=== PATIENT | female | born 1990 | race Caucasian/White ===

== ENCOUNTER 2017-04-03 12:34 | Emergency (ER) | payer BC ==
[~2017-04-03] VITALS: Ht 165.1 cm; Wt 86.0 kg
[2017-04-03 12:38] VITALS: Ht 165.1 cm; Wt 86.0 kg
[2017-04-03] MEDS ORDERED: LIDOCAINE 1% (MDV) 20 ML INJ SC ONE (14:30)
[2017-04-03] MEDS ORDERED: DIPHTH/TET/ACEL PERTUSS (ADULT) 0.5 ML VIAL IM* ONE (14:30)
[2017-04-03] MEDS ORDERED: HYDROCODONE/APAP (10/325) TAB PO ONE (15:30)
--- NOTE | 2017-04-03 16:16 | RADRPT ---
PROCEDURE: XR Foot. CLINICAL INDICATION: Left foot pain. TECHNIQUE: Three views of the left foot are available for review. COMPARISON: None available FINDINGS: No acute fracture or dislocation is seen. No radiopaque foreign body is identified. Bony mineraliz ation is normal. No significant soft tissue swelling is present. IMPRESSION: 1. No acute fracture or dislocation. RPTAT: HFN .Drew Dsouza MD, Date Time Electronically viewed and signed by .Drew Dsouza MD, on 04/03/2017 16:15 .N/
[2017-04-03] MEDS ORDERED: IBUP-1542 PO (17:12)
[2017-04-03] MEDS ORDERED: CEPH-443 PO (17:12)
[2017-04-03 17:44] VITALS: BP 132/61; PULSE 77; RESP 16
--- NOTE | 2017-04-03 17:57 | ERD ---
ER Documentation Chief Complaint Chief Complaint LT FOOT LAC FROM GLASS WINDOW HPI Patient is a 26-year-old female who presents ED for concerns of a laceration to her left foot. Patient states she sustained a laceration yesterday night around 8 PM. Patient states she did not wish to come to the ER but because the laceration continued to bleed she presents this afternoon. Patient states she was playing around with her boyfriend when she accidentally kicked a glass window with her foot. Patient discussed window did shatter. Patient states she cleaned out the wound using water and hydrogen peroxide. Patient does not recall her last tetanus vaccination. Patient is able to bear weight to the affected extremity. Patient denies any numbness or tingling. Patient did not hit her head. Patient denies any nausea, vomiting, LOC. ROS All systems reviewed and are negative except as per history of present illness. Medications Home Meds Active Scripts Ibuprofen* (Motrin*) 600 Mg Tab, 600 MG PO Q6, #30 TAB Prov:ESTER BRUMFIELD PA-C 04/03/17 Cephalexin* (Keflex*) 500 Mg Capsule, 500 MG PO TID for 10 Days, CAP Prov:ESTER BRUMFIELD PA-C 04/03/17 Allergies Allergies: Coded Allergies: No Known Allergy (Unverified , 04/03/17) PMhx/Soc Medical and Surgical Hx: pt denies Medical Hx History of Surgery: No Anesthesia Reaction: No Hx Neurological Disorder: No Hx Respiratory Disorders: No Hx Cardiac Disorders: No Hx Psychiatric Problems: No Hx Miscellaneous Medical Probl: Yes (gastritis) Hx Alcohol Use: No Hx Substance Use: No Hx Tobacco Use: No Smoking Status: Never smoker Physical Exam Vitals Vital Signs Date Time Temp Pulse Resp B/P Pulse Ox O2 Delivery O2 Flow Rate FiO2 04/03/17 17:44 77 16 132/61 97 Room Air 04/03/17 12:38 98.7 68 18 120/70 99 Physical Exam GENERAL: Well-developed, well-nourished female. Appears in no acute distress. HEAD: Normocephalic, atraumatic. EYES: Pupils are equally reactive bilaterally. EOMs grossly intact. No conjunctival erythema. ENT: Moist mucous membranes. No uvula deviation. No kissing tonsils. NECK: Supple. No meningismus. Normal range of motion of the neck. LUNG: Clear to auscultation bilaterally. No rhonchi, wheezing, rales or coarse breath sounds. HEART: Regular rate and rhythm. No murmurs, rubs or gallops. EXTREMITIES: Equal pulses bilaterally. No peripheral clubbing, cyanosis or edema. No unilateral leg swelling. NEUROLOGIC: Alert and oriented. Moving all four extremities without any difficulty. Normal speech. Steady gait. SKIN: Normal color. Warm and dry. LEFT FOOT: Numerous superficial abrasions noted to the patient's left plantar surface. 4 cm curved laceration noted to the medial aspect of the foot. Full ROM of the knee, ankle and all digits. Sensation intact to light touch. Neurovascularly intact. (Able to plantarflex, dorsiflex, bethany foot, invert foot , raise big toe.) 2+ DP and DT pulses. Results 24 hrs Current Medications Medications (Trade) Dose Ordered Sig/Rene Route PRN Reason Start Time Stop Time Status Last Admin Dose Admin Lidocaine (Xylocaine 1% (Mdv) 20 ml) 20 ml ONCE ONCE SC 04/03/17 14:30 04/03/17 14:31 DC Diphtheria/ Tetanus/Acell Pertussis (Adacel) 0.5 ml ONCE ONCE IM* 04/03/17 14:30 04/03/17 14:31 DC 04/03/17 14:38 Acetaminophen/ Hydrocodone Bitart ([place] (10/325)) 1 tab ONCE ONCE PO 04/03/17 15:30 04/03/17 15:31 DC 04/03/17 15:11 Procedures/MDM ED COURSE: The patient was stable throughout ED course. I kept the patient and/or family informed of laboratory and diagnostic imaging results throughout the ED course. DIAGNOSTIC IMAGING: Read by radiologist. atient: NEHEMIAS KUHN : 1990 Age: 26 Sex: F MR #: [id number] DOS: 04/03/17 0000 Ordering MD: ESTER BRUMFIELD PA-C Location: [facility] Room/Bed: PROCEDURE: XR Foot. CLINICAL INDICATION: Left foot pain. TECHNIQUE: Three views of the left foot are available for review. COMPARISON: None available FINDINGS: No acute fracture or dislocation is seen. No radiopaque foreign body is identified. Bony mineralization is normal. No significant soft tissue swelling is present. IMPRESSION: 1. No acute fracture or dislocation. RPTAT: HFN .Drew Dsouza MD, MD Date Time Electronically viewed and signed by .Drew Dosuza MD, MD on 04/03/2017 16: 15 .N/ CC: ESTER BRUMFIELD PA-C PROCEDURES: Laceration Repair: The patient was verbally consented prior to procedure. Patient was explained the risks, benefits and alternatives to this procedure. Length: 4 cm Irrigation: Thorough irrigation was performed with normal saline and adequate pressure. Inspection: The wound was thoroughly explored and no foreign bodies, deep tissue , tendon or structural injuries were noted. No glass particles noted. Anesthesia: 8 cc Repair: The area was prepared and draped in the usual sterile manner with the wound exposed. 7 Prolene sutures were placed with good wound closure and wound approximation. Bleeding was minimal. The patient tolerated the procedure well with no complications. The wound was dressed with bacitracin and sterile gauze. The patient was neurovascularly intact post-procedure. Post-procedural wound care was discussed with the patient. MEDICATIONS GIVEN: [place], Tdap Patient tolerated medication well with no adverse reactions. MEDICAL DECISION MAKING: This is a 26-year-old female presents with laceration to her left foot after hitting a glass window which broke. Injury occurred early last night however patient waited to come to the ED until this evening. Vital signs were reviewed. Patient was afebrile. The wound was cleansed thoroughly and irrigated using normal saline prior to closure. No glass particles are noted. X-ray imaging was obtained and was unremarkable. No foreign bodies were noted with irrigation and exploration of the wound. Suture repair was completed. See suture note. The wound had good wound closure and wound approximation. Laceration was loosely closed given that injury had occurred over 20 hours ago. Case was discussed with my supervising physician who agreed with my medical management. Patient will be discharged home with a course of antibiotics and advised to return in 2 days for wound recheck.. Patient was also given tetanus vaccination here in the ED. It was neurovascularly intact pre-and post wound repair. No complications were noted. At this time, patient presentation is most consistent with laceration to left foot. Low suspicion for fracture, open fracture, dislocation, tendon injury, ligament injury, neurovascular injury or retained foreign body. PRESCRIPTIONS: Keflex, Ibuprofen DISCHARGE: At this time, the patient is stable for discharge and outpatient management. Post-procedural wound care was discussed with the patient. The patient has been advised to return to the ER in 2 days for a wound check and then again in 10-14 days for suture removal. I have instructed the patient to promptly return to the ER for any new or worsening symptoms including increasing pain, fever, warmth, redness or swelling. The patient and/or family expressed understanding of and agreement with this plan. All questions were answered. Home care instructions were provided. Disclaimer: Inadvertent spelling and grammatical errors are likely due to EHR/ dictation software use and do not reflect on the overall quality of patient care. Also, please note that the electronic time recorded on this note does not necessarily reflect the actual time of the patient encounter. Departure Diagnosis: Primary Impression: Laceration Condition: Stable Patient Instructions: Laceration, Foot Referrals: REILLY NIEVES (PCP) Additional Instructions: Return in 2 days for wound recheck. Start antibiotics today. Call your primary care doctor TOMORROW for an appointment during the next 1-2 days.See the doctor sooner or return here if your condition worsens before your appointment time. ESTER BRUMFIELD PA-C Apr 03, 2017 17:57
== END 2017-04-03 17:45 | disposition home or self-care (01) ==
LOC: FTE 12:34
DX: S91.312A Laceration without foreign body, left foot, initial encounter (principal); W25.XXXA Contact with sharp glass, initial encounter; Y92.9 Unspecified place or not applicable; Z23 Encounter for immunization
CPT/HCPCS: 12002; 73630; 90471; 90715; Z7502; Z7610

== ENCOUNTER 2017-04-05 07:47 | Emergency (ER) | payer BC ==
[~2017-04-05] VITALS: Ht 172.7 cm; Wt 93.7 kg
[~2017-04-05 07:47] MED LIST: CEPH-443 PO; IBUP-1542 PO
[2017-04-05 07:50] VITALS: Ht 172.7 cm; Wt 93.7 kg
--- NOTE | 2017-04-05 08:20 | ERD ---
ER Documentation Chief Complaint Chief Complaint PT here for L foot LAC repair, 48 hour wound check HPI This is a 26 year-old female presents to the emergency room today for wound check of sutures that she had placed a couple of days ago. Patient stated that she did have some pain but denies any fevers or chills. States she is taking her antibiotics as prescribed. ROS All systems reviewed and are negative except as per history of present illness. Medications Home Meds Active Scripts Ibuprofen* (Motrin*) 600 Mg Tab, 600 MG PO Q6, #30 TAB Prov:ESTER BRUMFIELD PA-C 04/03/17 Cephalexin* (Keflex*) 500 Mg Capsule, 500 MG PO TID for 10 Days, CAP Prov:ESTER BRUMFIELD PA-C 04/03/17 Allergies Allergies: Coded Allergies: No Known Allergy (Unverified , 04/03/17) PMhx/Soc History of Surgery: No Anesthesia Reaction: No Hx Neurological Disorder: No Hx Respiratory Disorders: No Hx Cardiac Disorders: No Hx Psychiatric Problems: No Hx Miscellaneous Medical Probl: Yes (gastritis) Hx Alcohol Use: No Hx Substance Use: No Hx Tobacco Use: No Physical Exam Vitals Vital Signs Date Time Temp Pulse Resp B/P Pulse Ox O2 Delivery O2 Flow Rate FiO2 04/05/17 07:50 97.7 92 18 131/75 97 Physical Exam Const: NAD Head: Atraumatic Eyes: Normal Conjunctiva ENT: Normal External Ears, Nose and Mouth. Neck: Full range of motion..~ No meningismus. Resp: Clear to auscultation bilaterally Cardio: Regular rate and rhythm, no murmurs Abd: Soft, non tender, non distended. Normal bowel sounds Skin: Evidence of 7 sutures placed left foot medial aspect. No erythema or warmth. No purulent drainage. Mild localized swelling. Back: No midline or flank tenderness Ext: No cyanosis, or edema. Full active range of motion of elbow. Pulses 2+ . Distal vascularly intact. Good Cap refill. Neur: Awake and alert Psych: Normal Mood and Affect Procedures/MDM This is a 26-year-old female presents emergency department today for wound check of sutures that she had placed 2 days ago. Upon review of patient's medical records patient had sutures placed after she presented the day after she had an accident in which she and her boyfriend were playing around and she kicked some glass. Patient had x-rays done at that time showed no radiopaque foreign bodies or fractures or dislocations. She was updated on her tetanus at that time. Given that accident happened 20 hours prior to her to presentation here in the emergency department she had 7 sutures placed loosely. At this time she is afebrile and otherwise well-appearing. There is some very minimal localized swelling around the area. There is no erythema or warmth or purulent drainage. Wound appears to be healing well. Patient's wound was redressed here in the emergency department and she was instructed to return in 6-8 days for suture removal. She was instructed to keep the area clean and dry and continue taking her antibiotics as prescribed. At this time I have low suspicion for sepsis, deep space tracking infection or cellulitis. At this time the patient is stable for discharge and outpatient management. Patient should follow up with their PCP in the next 1-2 days. They may return to the emergency department sooner for any persistent or worsening of symptoms. Patient understood and agreed with the plan. Departure Diagnosis: Primary Impression: Encounter for wound re-check Condition: Fair Patient Instructions: Wound Check, Lac F/U (No Infection) Referrals: REILLY NIEVES (PCP) Additional Instructions: Call your primary care doctor TOMORROW for an appointment during the next 1-2 days.See the doctor sooner or return here if your condition worsens before your appointment time. Keep wound clean and dry. Continue taking her antibiotics as prescribed. Take Tylenol or Motrin for pain. Return in 6-8 days for suture removal RADHA HENSON PA-C Apr 05, 2017 08:20
== END 2017-04-05 08:41 | disposition home or self-care (01) ==
LOC: FTE 07:47
DX: Z48.01 Encounter for change or removal of surgical wound dressing (principal)
CPT/HCPCS: 99281

== ENCOUNTER 2017-04-14 08:33 | Emergency (ER) | END 2017-04-14 09:59 | disposition left against medical advice (07) ==

== ENCOUNTER 2017-04-14 21:32 | Emergency (ER) | payer BC, OTHER ==
[~2017-04-14] VITALS: Ht 165.1 cm; Wt 95.8 kg
[2017-04-14 22:33] VITALS: Ht 165.1 cm; Wt 95.8 kg
[2017-04-15] MEDS ORDERED: SULF1TAB31 PO (01:27)
[2017-04-15] MEDS ORDERED: BACITUD TOP (01:27)
--- NOTE | 2017-04-15 01:42 | ERD ---
ER Documentation Chief Complaint Chief Complaint suture removal on left foot. sutures placed 10 days ago HPI This is a 26-year-old female that presents to the ER for suture removal to her left foot. Patient has not had fever or chills, she does have some yellow discharge from the wound. She states that today of the area started hurting and has gotten red. She denies any numbness or tingling from her foot. ROS 12 point review of systems was done, all negative except per HPI. Medications Home Meds Active Scripts Bacitracin* (Bacitracin Oint (UD)*) 1 Applic Oint, 1 APPLIC TOP ONCE for 7 Days , PKT APPLY TO Prov:DMITRICINTHYA Hudson 04/15/17 Sulfamethoxazole/Trimethoprim* (Bactrim Ds* Tablet) 1 Each Tablet, 1 TAB PO BID , #14 TAB Prov:CINTHYA RIZVI 04/15/17 Ibuprofen* (Motrin*) 600 Mg Tab, 600 MG PO Q6, #30 TAB Prov:ESTER BRUMFIELD PA-C 04/03/17 Cephalexin* (Keflex*) 500 Mg Capsule, 500 MG PO TID for 10 Days, CAP Prov:ESTER BRUMFIELD PA-C 04/03/17 Allergies Allergies: Coded Allergies: No Known Allergy (Unverified , 04/14/17) PMhx/Soc Medical and Surgical Hx: pt denies Medical Hx, pt denies Surgical Hx History of Surgery: No Anesthesia Reaction: No Hx Neurological Disorder: No Hx Respiratory Disorders: No Hx Cardiac Disorders: No Hx Psychiatric Problems: No Hx Miscellaneous Medical Probl: Yes (gastritis) Hx Alcohol Use: Yes Hx Substance Use: No Hx Tobacco Use: No Smoking Status: Never smoker Physical Exam Vitals Vital Signs Date Time Temp Pulse Resp B/P Pulse Ox O2 Delivery O2 Flow Rate FiO2 04/14/17 22:33 98.1 89 18 130/75 100 Physical Exam GENERAL: The patient is well developed and appropriate for usual state of health , in no apparent distress. HEENT: Atraumatic. CHEST: Clear to auscultation bilaterally. There are no rales, wheezes or rhonchi. HEART: Regular rate and rhythm. No murmurs, clicks, rubs or gallops. NEURO: Alert and oriented. SKIN: there is a healing laceration to the left medial foot, there is some yellow discharge from the wound. no wound dehiscence. Procedures/MDM Suture Removal by me: Sutures removed with tweezers and scissors without incident. Patient did have some discharge from the wound, she was already on Keflex, she will be sent home with Bactrim and bactroban. Patient to follow up PRN. Departure Diagnosis: Primary Impression: Encounter for removal of sutures Condition: Stable Patient Instructions: Suture Removal, Infected Referrals: REILLY NIEVES (PCP) Additional Instructions: Call your primary care doctor TOMORROW for an appointment during the next 1-2 days.See the doctor sooner or return here if your condition worsens before your appointment time. CINTHYA RIZVI Apr 15, 2017 01:42
[2017-04-15 01:50] VITALS: BP 116/80; PULSE 80; RESP 19; TEMP 98
== END 2017-04-15 01:50 | disposition home or self-care (01) ==
LOC: FTE 21:32
DX: T81.89XA Other complications of procedures, not elsewhere classified, initial encounter (principal); Y82.9 Unspecified medical devices associated with adverse incidents; Z48.02 Encounter for removal of sutures
CPT/HCPCS: 99283

== ENCOUNTER 2017-08-19 19:54 | Emergency (ER) | END 2017-08-19 21:21 | disposition home or self-care (01) ==